=== PATIENT | female | born 1945 | race Caucasian/White ===

== ENCOUNTER → 2016-08-31 | Outpatient (CLI) | payer MEDICARE, OTHER ==
[~2016-08-31] MED LIST: ASPIRIN325 M1 PO; ASPIRIN81 M2 PO; CRESTOR5 MG PO; ESOMEPRAZOLE MA40 MG; FORTAMET1000 MG/B1 PO; HUMULIN 70100 UNIT/2; LOTENSIN20 MG PO; METOPROLOL TAR25 MG PO; NOVOLIN 70/30 U13 M1 SQ; SIMVASTATIN40 MG PO; VICTOZA0.6 MG/0.1 SQ; VOLTAREN75 MG PO; ZANTAC150 MG PO
--- NOTE | ~2016-08-31 | MY11 ---
[facility] A Service of [facility] / [facility] RADIOLOGY TEXT RESULTS PATIENT: REJI MONSALVE LOCATION: [facility] : 49 UNIT #: [id number] AGE: [address]: Susu Goldberg MD SEX: F ORDER DR: [id number] [facility] [address] [place], [place] [address] [id number] O MR#: [id number] Acc #: [id number] NAME: REJI MONSALVE : 1945 SEX: F STUDY DATE/TIME: 08/31/2016 11:02 UNIT: [facility] ROOM: STUDY DESCRIPTION: MY Mammogram Screening Dig Norm Attending Physician: Susu Goldberg M.D. Referring Physician: Susu Goldberg M.D. Ordering Physician: Susu Goldberg M.D. Primary Care Physician: Susu Goldberg M.D. MEDICAL IMAGING REPORT This report is preliminary unless electronic signature is present EXAM Digital screening mammogram. DATE OF EXAM 08/31/2016 LOCATION [facility]. HISTORY 71-year-old woman, no risk elevation. Annual screen. COMPARISON Mammograms date to 02/15/2006, with most recent 08/18/2015. FINDINGS Digital imaging of each breast was completed utilizing a two-view examination of each breast in craniocaudal and mediolateral-oblique projections. Review and interpretation of digital mammograms include a second review in conjunction with FDA-approved CAD device. There is a normal parenchymal presentation bilaterally consistent with the patient's age. There are no breast masses imaged and no parenchymal asymmetry is visualized. There are no suspicious microcalcifications and I see no focal architectural disturbance. IMPRESSION Negative screening digital mammogram. One-year followup recommended. Patients over the age of 40 are entered into a reminder system with target due date for the next mammogram. A result letter will also be sent to the patient. BIRADS: 1 Negative. [facility] A Service [facility] RADIOLOGY TEXT RESULTS PATIENT: REJI MONSALVE LOCATION: [facility] : 49 UNIT #: [id number] AGE: [address]: Susu Goldberg MD SEX: F ORDER DR: ADDENDUM Breast parenchyma is fatty replaced. Dictated by... Dyllan Flaherty M.D. THIS IS AN ELECTRONICALLY VERIFIED REPORT Dyllan Flaherty M.D. at 09/03/2016 8:09 AM ENEDELIA/stephen TD: 08/31/2016 15:24 JOB #: [id number] MEDICAL IMAGING REPORT Page 1 of 1 COPY
== END | disposition home or self-care (01) ==
LOC: CWCC 10:32
DX: Z12.31 Encounter for screening mammogram for malignant neoplasm of breast (principal); R92.8 Other abnormal and inconclusive findings on diagnostic imaging of breast
CPT/HCPCS: G0202